=== PATIENT | male | born 1970 | race Caucasian/White ===

== ENCOUNTER 2024-01-15 21:45 | Emergency (ER) | payer OTHER, SELFPAY ==
[2024-01-15 21:47] VITALS: BP 156/96; PULSE 94; RESP 18; TEMP 36.3; O2SAT 98
--- NOTE | 2024-01-15 23:05 | ED.ANIMALBIT ---
HPI - Animal Bite General Chief Complaint: Animal Bite Stated Complaint: dog bite to right calf Time Seen by Provider: 01/15/24 22:00 Source: patient Mode of arrival: ambulatory Limitations: no limitations History of Present Illness HPI narrative: This is a 53 year old male that presents to the ER for a dog bite to the right calf. Sustained just prior to arrival. Reports he was mowing and his neighbors dog got out of the fence and bit him. Reports bleeding and pain to the area. Is up to date on tetanus vaccination. Will clarify with neighbor if it's dog is up to date on vaccinations. Denies decreased ROM or numbness. Related Data Home Medications Medication Instructions Recorded Confirmed lisinopril 20 mg tablet 20 mg PO DAILY 01/15/24 01/15/24 Allergies Allergy/AdvReac Type Severity Reaction Status Date / Time melon Allergy Anaphylaxis Verified 01/15/24 21:53 Review of Systems Review of Systems: CONSTITUTIONAL: Denies fever SKIN: Reports laceration All systems reviewed & are unremarkable except as noted in HPI and below PMFSH Past Medical History Medical History (Updated 01/16/24 @ 00:26 by Angie Franco PA-C) History of hypertension Social History Social History (Updated 01/15/24 @ 23:09 by Angie Franco PA-C) Substance use: never Exam Narrative: GENERAL: Well-appearing, well-nourished, and in no acute distress. HEAD: Normocephalic, atraumatic. EYES: EOMI. EXTREMITIES: Normal range of motion. No edema. Right calf with 3cm irregular laceration into subcutaneous tissue. 2 additional smaller puncture wounds. Normal DP pulse. Normal sensation SKIN: Warm, dry, no rash. NEURO: No focal deficits. Alert and oriented x3. PSYCH: Normal mood and affect Course Course Emergency Course: Patient and family educated on wound care Vital Signs Vital signs: Vital Signs Temperature 97.4 F L 01/15/24 21:47 Pulse Rate 94 01/15/24 21:47 Respiratory Rate 18 01/15/24 21:47 Blood Pressure 156/96 H 01/15/24 21:47 Pulse Oximetry 98 01/15/24 21:47 Oxygen Delivery Room Air 01/15/24 21:47 Temperature 97.4 F L 01/15/24 21:47 Pulse Rate 94 01/15/24 21:47 Respiratory Rate 18 01/15/24 21:47 Blood Pressure 156/96 H 01/15/24 21:47 Pulse Oximetry 98 01/15/24 21:47 Oxygen Delivery Room Air 01/15/24 21:47 Procedures Laceration Laceration 1: Date: 01/16/24 Time: 00:30 Site: lower extremity Side (If applicable): right Size (cm): 3 Description: irregular Depth: simple, single layer Local Anesthetic: lidocaine 1% and with epi Pre-repair: wound explored and irrigated extensively ====== Skin Level ====== Skin layer closed with: nylon Size (cm): 3-0 Number of sutures: 2 Technique: horizontal mattress ====== Subcutaneous Layer ====== ====== Muscle Layer ====== ====== Tendon Layer ====== Laceration 2: Date: 01/16/24 Time: 00:31 Site: lower extremity Side (If applicable): right Size (cm): 1.5 Description: linear Depth: simple, single layer Pre-repair: irrigated extensively ====== Skin Level ====== Skin layer closed with: steri strips ====== Subcutaneous Layer ====== ====== Muscle Layer ====== ====== Tendon Layer ====== Laceration 3: Date: 01/16/24 Time: 00:32 Site: lower extremity Side (If applicable): right Size (cm): 1.5 Description: linear Depth: simple, single layer Pre-repair: irrigated extensively ====== Skin Level ====== Skin layer closed with: steri strips ====== Subcutaneous Layer ====== ====== Muscle Layer ====== ====== Tendon Layer ====== MDM - Animal Bite MDM Narrative Medical decision making narrative: Patient presents the emergency department for a dog bite to the right
[2024-01-15] MEDS: IBUPROFEN 600 MG TABLET PO (23:19)
--- NOTE | 2024-01-15 23:33 | PC.NURSE ---
this rn went to administer ibuprofuen to patient. this rn was explaining to patient the benefits and uses of ibuprofuen. pt visitor raised voice at this rn and stated, you are going to give him a blood thinner while he is bleeding out . this rn educated patient visitor about patient wound having controlled bleeding at this time. this rn asked patient if he would like medication to be given for pain control. pt stated, Yes, I would like something for pain . pt visitor raised voice at this rn again and stated, 600mg is not going to be enough, would have been nice if the physician would have let us know about all of this before you came in here . this rn explained to patient that he did not have to take this medication if he was uncomfortable or not experiencing pain. pt expressed need of wanting pain medication to be administered. this rn administered pain medication to patient who verbalized understanding. audie barrera was made aware of patient visitor outburst and concern.
[2024-01-16] MEDS: AMOXICILLIN/CLAVULANATE K 875-125 MG TAB 1 TABLET PO (00:34)
[2024-01-16] MEDS: HYDROcodone/acetaminophen (*CRX) 5-325 MG TABLET 1 TAB PO (00:35)
== END 2024-01-16 00:44 | disposition home or self-care (01) ==
PROVIDERS: Emergency Provider Physician Assistant; PCP Nurse Practitioner Family
DX: S81.851A Open bite, right lower leg, initial encounter (principal); I10 Essential (primary) hypertension; W54.0XXA Bitten by dog, initial encounter
CPT/HCPCS: 12002; 99283; A9270